=== PATIENT | female | born 1980 | race Caucasian/White ===

== ENCOUNTER 2024-02-28 08:56 | Emergency (ER) | payer BC ==
[2024-02-28 09:12] LABS: BASOPHILS ABSOLUTE AUTO 0.04 K/uL (0.00-0.20); BASOPHILS PERCENT AUTO 0.6 % (0.0-1.0); EOSINOPHILS ABSOLUTE AUTO 0.24 K/uL (0.00-0.45); EOSINOPHILS PERCENT AUTO 3.5 % (0.0-6.0); HEMATOCRIT 38.7 % (37.0-47.0); HEMOGLOBIN 11.1 g/dL (12.0-16.0); IMMATURE GRAN ABSOLUTE AUTO 0.02 K/uL (0.00-0.05); IMMATURE GRAN PERCENT AUTO 0.3 % (0.0-0.4); LYMPHOCYTES ABSOLUTE AUTO 2.28 K/uL (1.00-4.80); LYMPHOCYTES PERCENT AUTO 32.9 % (24.0-44.0); MEAN CORPUSCULAR HEMOGLOBIN 23.1 pg (28.0-32.0); MEAN CORPUSCULAR VOLUME 80.5 fL (83.0-99.0); MEAN PLATELET VOLUME 8.7 fL (9.4-12.3); MONOCYTES ABSOLUTE AUTO 0.54 K/uL (0.00-0.80); MONOCYTES PERCENT AUTO 7.8 % (0.0-8.0); NEUTROPHILS ABSOLUTE AUTO 3.82 K/uL (1.80-7.70); NEUTROPHILS PERCENT AUTO 54.9 % (41.0-71.0); PLATELET COUNT,PLT 410 K/uL (150-400); RED BLOOD CELL COUNT 4.81 M/uL (4.10-5.30); WHITE BLOOD CELL COUNT,WBC 6.94 K/uL (3.9-11.3)
[2024-02-28] MEDS: Ketorolac 30 MG/ML SDV IVPUSH ONE (09:19)
[2024-02-28] MEDS: Sodium Chloride 0.9% 1,000 ML IV ONE (09:19)
[2024-02-28] MEDS: diphenhydrAMINE 50 MG/ML SDV IVPUSH ONE (09:19)
[2024-02-28] MEDS: Ondansetron 4 MG/2 ML SDV IVPUSH ONE (09:19)
[2024-02-28] MEDS: Metoclopramide 10 MG/2 ML SDV IVPUSH ONE (09:19)
[2024-02-28] MEDS: Scopalamine 1mg/3day Transdermal Patch TRDERM STA (09:20)
[2024-02-28 09:36] LABS: A/G RATIO 0.9 (0.9-1.6); ALBUMIN 3.3 g/dL (3.4-5.0); BILIRUBIN TOTAL 0.4 mg/dL (0.2-1.0); CALCIUM 8.3 mg/dL (8.5-10.1); CARBON DIOXIDE,CO2 24.9 mmol/L (21.0-32.0); CREATININE 0.8 mg/dL (0.6-1.0); EST CRCL DRUG DOSING (CG) 91.47 mL/min; POTASSIUM,K 3.7 mmol/L (3.5-5.1); PROTEIN TOTAL,TP 6.9 g/dL (6.4-8.2)
[2024-02-28 09:50] LABS: MEAN CORPUSCULAR HGB CONC 28.7 g/dL (32.0-36.0)
[2024-02-28] MEDS: Iopamidol 755 MG/ML 500 ML Multipack Bottle IVPUSH STA (11:24)
[2024-02-28 11:32] LABS: APPEARANCE,URINE CLEAR; BILIRUBIN,URINE NEGATIVE (NEGATIVE); COLOR,URINE YELLOW; GLUCOSE,URINE NEGATIVE (NEGATIVE); KETONES,URINE NEGATIVE (NEGATIVE); LEUKOCYTE ESTERASE,URINE NEGATIVE (NEGATIVE); NITRITE,URINE NEGATIVE (NEGATIVE); OCCULT BLOOD,URINE NEGATIVE (NEGATIVE); PROTEIN,URINE NEGATIVE (NEGATIVE); UROBILINOGEN,URINE 0.2 EU/dL (<2.0)
== END 2024-02-28 13:02 | disposition home or self-care (01) ==
LOC: MW.ED 08:56
DX: G43.909 Migraine, unspecified, not intractable, without status migrainosus (principal); Z79.899 Other long term (current) drug therapy; Z75.8 Other problems related to medical facilities and other health care
CPT/HCPCS: 36415; 70450; 70496; 70498; 80053; 81003; 85025; 93005; 96361; 96374; 96375; 99285; A9270; J1200; J1885; J2405; J2765; J7030; Q9967